=== PATIENT | female | born 1985 | race Hispanic/Latino ===

== ENCOUNTER 2016-08-21 23:15 | Inpatient (IN) | payer OTHER ==
[~2016-08-21] VITALS: Ht 152.4 cm; Wt 68.5 kg
[~2016-08-21 23:15] MED LIST: BENTYL10 MG PO; FEOSOL200 MG PO; IBUPROFEN600 MG PO; LOPRESSOR12.5 MG PO
[2016-08-21 23:20] VITALS: BP 138/83
[2016-08-21 23:37] LABS: URINE BILIRUBIN - DIPSTICK NEGATIVE (NEGATIVE); URINE BLOOD DIPSTICK TRACE-INTACT (NEGATIVE); URINE CLARITY CLOUDY; URINE COLOR YELLOW; URINE GLUCOSE - DIPSTICK NEGATIVE (NEGATIVE); URINE KETONE NEGATIVE (NEGATIVE); URINE LEUK ESTERASE TRACE (NEGATIVE); URINE NITRITE - DIPSTICK NEGATIVE (Negative); URINE PH 5.5 (4.5-8.0); URINE PROTEIN - DIPSTICK NEGATIVE (NEG-TRACE); URINE UROBILINOGEN - DIPSTICK 0.2 E.U./dL (0.2)
[2016-08-21 23:42] LABS: BARBITURATES NEGATIVE (NEGATIVE); COCAINE NEGATIVE (NEGATIVE); METHADONE NEGATIVE (NEGATIVE); OXCYCODONE NEGATIVE (NEGATIVE); TETRAHYDROCANNABIONOL NEGATIVE (NEGATIVE); TRICYLIC ANTIDEPRESSANTS NEGATIVE (NEGATIVE)
[2016-08-21 23:45] VITALS: BP 137/86
[2016-08-22] VITALS (10 sets, daily range): BP systolic 108–128; BP diastolic 53–82
[2016-08-22 00:03] LABS: HEMATOCRIT 34.9 % (37.0-47.0); HEMOGLOBIN 11.3 g/dl (12.0-16.0); IMMATURE GRANULOCYTES 1.1 % (0.0-1.0); MEAN CELL VOLUME 75.9 fL CALC (80.0-100.0); MEAN CORPUSCULAR HGB 24.6 pG CALC (26.0-32.0); MEAN CORPUSCULAR HGB CONC 32.4 g/L CALC (32.0-36.0); NEUT# 10.6 thou/uL (2.00-7.15); RED BLOOD COUNT 4.6 mill/uL (4.20-5.60); RED CELL DISTRI WIDTH 16.3 % (11.5-15.5)
[2016-08-22 00:15] LABS: ALKALINE PHOSPHATASE 245 u/l (38-126); ANION GAP 16 (6-22 (CALC)); BILIRUBIN, TOTAL 0.3 mg/dL (0.0-1.4); BUN 14 mg/dL (7-17); BUN/CREATININE RATIO 20 (12-20 (CALC)); CALCIUM 9.3 mg/dL (8.4-10.2); CARBON DIOXIDE 20 mmol/l (22-30); CHLORIDE 106 mmol/l (95-108); CREATININE 0.7 mg/dL (0.5-1.0); GFR > 60 ML/MIN (>=60 (CALC)); GFR FOR AFR.AMER. > 60 ML/MIN (>=60 (CALC)); GLUCOSE 92 mg/dL (65-105); POTASSIUM 4.2 mmol/l (3.5-5.1); SGOT/AST 19 u/l (14-36); SGPT/ALT 22 u/l (9-52); SODIUM 138 mmol/l (137-146); TOTAL PROTEIN 7.7 g/dL (6.3-8.2)
[2016-08-22] MEDS ORDERED: PRENATABS RX PO (04:34)
[2016-08-22 06:09] LABS: HEMATOCRIT 32.3 % (37.0-47.0); HEMOGLOBIN 10.4 g/dl (12.0-16.0); IMMATURE GRANULOCYTES 0.4 % (0.0-1.0); MEAN CELL VOLUME 76.4 fL CALC (80.0-100.0); MEAN CORPUSCULAR HGB 24.6 pG CALC (26.0-32.0); MEAN CORPUSCULAR HGB CONC 32.2 g/L CALC (32.0-36.0); NEUT# 15.21 thou/uL (2.00-7.15); RED BLOOD COUNT 4.23 mill/uL (4.20-5.60); RED CELL DISTRI WIDTH 16.1 % (11.5-15.5)
[2016-08-23 09:05] VITALS: BP 118/74
[2016-08-23 16:18] VITALS: BP 133/73
[2016-08-23 19:13] VITALS: BP 120/68
[2016-08-24 06:28] VITALS: BP 113/51
[2016-08-24] MEDS ORDERED: IBUPROFEN600 MG PO (10:01)
== END 2016-08-24 10:50 | disposition home or self-care (01) | DRG 775 ==
LOC: OB 23:15 → OBOP 23:15 → OB 23:30
PROC: 10E0XZZ Delivery of Products of Conception, External Approach (ICD-10-PCS; principal; 2016-08-22)
PROC: 10907ZC Drainage of Amniotic Fluid, Therapeutic from Products of Conception, Via Natural or Artificial Opening (ICD-10-PCS; 2016-08-22)
DX: O60.14X0 Preterm labor third trimester with preterm delivery third trimester, not applicable or unspecified (principal); Z37.0 Single live birth; Z3A.36 36 weeks gestation of pregnancy

== ENCOUNTER 2024-07-04 18:15 | Emergency (ER) | payer SELFPAY ==
[~2024-07-04] VITALS: Ht 152.4 cm; Wt 71.0 kg
[~2024-07-04 18:15] MED LIST changes: +PRENATABS RX PO
[2024-07-04] MEDS ORDERED: HYDROcodone 5 MG/Acetaminophen 325 MG/COMBO PO ONE (18:25)
[2024-07-04 18:30] VITALS: BP 115/80
[2024-07-04] MEDS ORDERED: SILVER SULFADIAZINE 50 GM/TUBE EA EX ONE (18:40)
[2024-07-04 18:45] VITALS: BP 117/83
[2024-07-04] MEDS ORDERED: LORTAB 5/3255 MG PO (18:45)
[2024-07-04] MEDS ORDERED: IBUPROFEN600 MG PO (18:45)
[2024-07-04] MEDS ORDERED: MUPIROCIN2 % EX (18:45)
[2024-07-04 18:51] VITALS: BP 117/83
== END 2024-07-04 19:00 | disposition home or self-care (01) | DRG 935 ==
LOC: ED 18:15
PROC: 2W2QX4Z Dressing of Right Lower Leg using Bandage (ICD-10-PCS; principal; 2024-07-04)
DX: T24.201A Burn of second degree of unspecified site of right lower limb, except ankle and foot, initial encounter (principal); T31.0 Burns involving less than 10% of body surface; X10.2XXA Contact with fats and cooking oils, initial encounter